=== PATIENT | male | born 1960 | race Caucasian/White ===

== ENCOUNTER 2017-09-20 13:14 | Emergency (ER) | payer BC ==
[2017-09-20] MEDS ORDERED: Adacel (T-DAP) 0.5 ML VIAL ONE (14:01)
[2017-09-20] MEDS ORDERED: Bupivacaine 0.25% 10 ML VIAL ONE (14:02)
[2017-09-20] MEDS ORDERED: Ketorolac Tromethamine 30 MG/ML VIAL ONE (14:02)
[2017-09-20] MEDS ORDERED: Lidocaine 1% PF 5 ML VIAL ONE ×2 (14:02→16:14)
--- NOTE | 2017-09-20 14:26 | RAD ---
RIGHT MIDDLE FINGER THREE VIEWS: History: Right finger injury. FINDINGS: There is a displaced comminuted crush injury of the distal tuft of the right middle finger. The large st fragment is displaced posteriorly 0.3 cm. No evidence of intraarticular extension of the fracture. IMPRESSION: 1. Mildly displaced comminuted crush fracture involving the distal tuft of the right middle finger. POS: [facility]
[2017-09-20] MEDS ORDERED: Bupivacaine 0.5% 10 ML VIAL ONE (16:14)
[2017-09-20] MEDS ORDERED: CEFAZOLIN/Water 2 GM/20 ML SYRINGE ONE ×2 (16:51→16:52)
== END 2017-09-20 18:53 | disposition home or self-care (01) ==
LOC: ERS 13:14
DX: S67.193A Crushing injury of left middle finger, initial encounter (principal); N40.0 Benign prostatic hyperplasia without lower urinary tract symptoms; Z79.899 Other long term (current) drug therapy; W23.0XXA Caught, crushed, jammed, or pinched between moving objects, initial encounter; Y93.H2 Activity, gardening and landscaping
CPT/HCPCS: 64450; 90471; 90715; 93005; 96374; 96375; J1885; J2001; J3490; S0020

== ENCOUNTER 2017-09-21 10:48 | Day surgery (SDC) | payer BC ==
[2017-09-21] MEDS ORDERED: Dexamethasone 4 mg/ml Vial ONE (11:32)
[2017-09-21] MEDS ORDERED: Lidocaine 1% (PF) 30 ML VIAL ONE (11:33)
[2017-09-21] MEDS ORDERED: Bupivacaine 0.5% 10 ML VIAL ONE ×2 (11:33→11:34)
[2017-09-21] MEDS ORDERED: Fentanyl 100 MCG/2 ML VIAL ONE ×2 (11:37→14:00)
[2017-09-21] MEDS ORDERED: Midazolam HCl 2 mg/2 ml Vial ONE (11:37)
[2017-09-21] MEDS ORDERED: CEFAZOLIN/Water 2 GM/20 ML SYRINGE ONE (11:57)
[2017-09-21] MEDS ORDERED: Propofol 200 MG/20 ML VIAL ONE (14:38)
[2017-09-21] MEDS ORDERED: Dexamethasone 20 MG/5 ML VIAL ONE (14:38)
[2017-09-21] MEDS ORDERED: Lidocaine 1% PF 5 ML VIAL ONE (14:38)
[2017-09-21] MEDS ORDERED: Ondansetron HCl/PF 4 MG/2 ML Vial ONE (14:38)
[2017-09-21] MEDS ORDERED: Bupivacaine PF 0.5% 30 ML VIAL ONE (14:57)
[2017-09-21] MEDS ORDERED: Bupivacaine HCl 0.5%/Epinephrine 1:200,000/PF 30 ml Vial ONE (14:57)
[2017-09-21] MEDS ORDERED: Promethazine HCl 25 MG/ML VIAL ONE (15:18)
[2017-09-21] MEDS ORDERED: HYDROcodone/Acetaminophen 5/325 mg Tablet ONE (16:52)
--- NOTE | 2017-09-21 17:14 | OP ---
DATE OF PROCEDURE: 09/21/2017 PREOPERATIVE DIAGNOSIS: Full thickness soft tissue loss to the end of the right middle finger. POSTOPERATIVE DIAGNOSIS: Full thickness soft tissue loss to the end of the right middle finger. PROCEDURE PERFORMED: Pedicle flap from the right middle finger to the defect on the fingertip with a full-thickness skin graft from the right wrist. SURGEON: Marty Medrano M.D. SURGEON IN DETAIL: The patient was brought to the operating room and after administration of general anesthetic, his right upper extremity was prepped and draped in the usual fashion and the tourniquet was inflated. The end of the finger was cleaned as there was some old blood clots and debris betwee n his nail and distal phalanx, which was exposed. The defect was tangential and covered the entire v olar tip of the finger and measured 2.5 cm in length by 1.5 cm in width. The ulnar side of the finge r just proximal to the soft tissue defect was marked out with the pin drawing a flap that was roughly the same size as the defect on the fingertip. The line was then drawn from the proximal end of the flap, which was tapered along the mid lateral line of the ulnar side of the middle finger back just p roximal to the PIP joint. The line was then carried back to the webspace and then curved across the palm in a radial direction and then back in an ulnar direction. A skin incision was made on the radi al side of the flap in the midline of the middle finger on the palmar side and the ulnar neurovascula r bundle was identified. This was left in the flap and the incision on the ulnar side was then made and the flap was elevated with the neurovascular bundle. The terminal end of the neurovascular bundl e was ligated and cut at the area where the soft tissue defect started. The flap was completely elev ated and then using soft tissue dissection scissors, the neurovascular bundle was dissected back into the palm to the point where the digital artery branched to the ring finger. It was decided not to s acrifice the branch to the radial branch to the ring finger because the flap appeared to be tethered by the nerve rather than the artery. The middle finger PIP joint had to be flexed about 30 degrees i n order to take the tension off of the neurovascular bundle to insert the flap and this was done with 5-0 nylon and to cover the defect very nicely. The soft tissue wound was then closed, leaving a def ect on the ulnar side of the finger just proximal to where the flap was placed. A full-thickness ski n graft was taken from the volar wrist in an elliptical fashion and the defect was closed with 4-0 ny michael. The graft was defatted and inset in the defect on the finger. It was then secured with a bolst er tie down dressing using cotton ball soaked in mineral oil and tying them down with nylon. The fla p initially did not have capillary refill, but it eventually pinked up and had good capillary refill by the end of the case. The palm and wrist were infiltrated with 0.5% plain Marcaine and a well-padd ed bulky dressing was applied with the middle finger flexed at the MCP and PIP joints. When the didier ent got to recovery room, the capillary refill was checked again and appeared to be less than 2 secon ds and I showed the recovery room nurse how to check the capillary refill before the patient left. The patient was monitored. When he was awake and stable, he was discharged home. He was given a pre scription for pain medication, wound care instructions, and a followup appointment.
[2017-09-21] MEDS ORDERED: Ketorolac Tromethamine 30 MG/ML VIAL ONE (17:26)
== END 2017-09-21 15:46 | disposition home or self-care (01) ==
LOC: SDC 10:48
PROVIDERS: ATTEND Orthopaedic Surgery
PROC: 0HXFXZZ Transfer Right Hand Skin, External Approach (ICD-10-PCS; principal; 2017-09-21)
DX: S67.192A Crushing injury of right middle finger, initial encounter (principal)
CPT/HCPCS: 96374; J0670; J1100; J1885; J2001; J2250; J2405; J2550; J2704; J3010; J3490; S0020

== ENCOUNTER 2020-12-08 08:47 | Emergency (ER) | payer BC ==
[2020-12-08] MEDS ORDERED: Fluorescein Opthalmic Strip ONE (09:00)
[2020-12-08] MEDS ORDERED: Proparacaine 0.5% Opth 15 ML BOT ONE (09:00)
== END 2020-12-08 09:50 | disposition home or self-care (01) ==
LOC: ERS 08:47
DX: H16.9 Unspecified keratitis (principal)
CPT/HCPCS: 99283